=== PATIENT | female | born 1965 | race Caucasian/White ===

== ENCOUNTER 2023-11-20 15:30 | Emergency (ER) | payer OTHER ==
[~2023-11-20] VITALS: Ht 160 cm; Wt 77.1 kg
[2023-11-20 15:33] VITALS: BP 155/91; PULSE 77; RESP 16; TEMP 97.7; O2SAT 98
[2023-11-20] MEDS ORDERED: IBUP-2213 PO (15:59)
[2023-11-20] MEDS ORDERED: PRED20TA5 PO (15:59)
[2023-11-20 16:11] VITALS: BP 155/90; PULSE 77; RESP 16; TEMP 97; O2SAT 99
== END 2023-11-20 16:11 | disposition home or self-care (01) ==
LOC: MED 15:30
DX: R07.89 Other chest pain (principal); R05.9 Cough, unspecified; Z98.890 Other specified postprocedural states
CPT/HCPCS: 93005; 99283